=== PATIENT | female | born 1970 | race Caucasian/White ===

== ENCOUNTER 2020-06-08 15:55 | Outpatient (CLI) | payer OTHER, SELFPAY ==
--- NOTE | ~2020-06-08 | MM_ITS ---
EXAMINATION: MM screening nir BI w angélica HISTORY: Screening mammogram TECHNIQUE: Craniocaudal and mediolateral oblique 3-D tomosynthesis images were obtained and synthetic 2-D images were generated. CAD analysis was submitted and interpreted. COMPARISON: No prior mammogram is available for comparison at this institution. BREAST PARENCHYMAL COMPOSITION: There are scattered areas of fibroglandular density. FINDINGS: There is no evidence of suspicious mass, calcification, or architectural distortion to sugg est malignancy in either breast. There has been no suspicious interval change. IMPRESSION: 1. No mammographic evidence of malignancy. 2. Recommend routine screening mammography in one year. BI-RADS Category 1: Negative Reviewed, dictated and finalized at location A.
== END 2020-06-08 15:56 | disposition home or self-care (01) ==
LOC: ANHIMG 15:58
PROVIDERS: PCP Internal Medicine; Visit Provider Internal Medicine
DX: Z12.31 Encounter for screening mammogram for malignant neoplasm of breast (principal)
CPT/HCPCS: 77063; 77067

== ENCOUNTER 2021-09-01 14:44 | Outpatient (CLI) | payer OTHER, SELFPAY ==
--- NOTE | ~2021-09-01 | MM_ITS ---
EXAMINATION: MM screening nir BI w angélica HISTORY: Screening TECHNIQUE: Craniocaudal and mediolateral oblique 3-D tomosynthesis images were obtained and synthetic 2-D images were generated. CAD analysis was submitted and interpreted. COMPARISON: 06/08/2020 BREAST PARENCHYMAL COMPOSITION: Breast composed of scattered areas of fibroglandular density FINDINGS: There are asymmetries in the upper outer quadrant of the left breast. There are no suspicio us masses, calcifications or architectural distortion in the right breast to suggest malignancy. IMPRESSION: 1. Left breast asymmetries, upper outer quadrant, middle third. 2. Additional mammographic views and possible breast ultrasound are recommended. BI-RADS Category 0: Incomplete: Needs additional imaging evaluation. Reviewed, dictated and finalized at location A. [facility] COPPER IMPRESSION: 1. Left breast asymmetries, upper outer quadrant, middle third. 2. Additional mammographic views and possible breast ultrasound are recommended . BI-RADS Category 0: Incomplete: Needs additional imaging evaluation.
== END 2021-09-01 14:45 | disposition home or self-care (01) ==
PROVIDERS: PCP Internal Medicine; Visit Provider Internal Medicine
DX: Z12.31 Encounter for screening mammogram for malignant neoplasm of breast (principal); R92.8 Other abnormal and inconclusive findings on diagnostic imaging of breast
CPT/HCPCS: 77063; 77067

== ENCOUNTER 2021-09-16 13:20 | Outpatient (CLI) | payer OTHER, SELFPAY ==
--- NOTE | ~2021-09-16 | MMUS_ITS ---
EXAMINATION: MM diagnostic nir LT w angélica, US breast LT limited HISTORY: Focal asymmetry left breast on screening mammogram TECHNIQUE: Additional 3-D tomosynthesis images of the left breast were performed and synthetic 2-D im ages were generated. CAD analysis was submitted and interpreted. High resolution limited left breast ultrasound was performed. COMPARISON: 09/01/2019 09/29/2019 FINDINGS: MAMMOGRAPHIC FINDINGS: Focal asymmetry in the middle third of the upper outer quadrant of the breast has an appearance stabl to 2019 comparison with spot compression. No suspicious mass, calcification, or architectural disto rtion are identified. ULTRASOUND: There is no evidence of focal abnormal solid or cystic mass in the vicinity of the mammographic findi ng in question. IMPRESSION: 1. No mammographic or sonographic evidence of malignancy. 2. Recommend routine screening mammography in one year. BI-RADS Category 2: Benign finding(s). Reviewed, dictated and finalized at location A. CT ENTRY MIDWIFE IMPRESSION: 1. No mammographic or sonographic evidence of malignancy. 2. Recommend routine screening mammography in one year. BI-RADS Category 2: Benign finding(s).
== END 2021-09-16 13:21 | disposition home or self-care (01) ==
LOC: ANHIMG 13:22
PROVIDERS: PCP Internal Medicine; Visit Provider Internal Medicine
DX: R92.8 Other abnormal and inconclusive findings on diagnostic imaging of breast (principal)
CPT/HCPCS: 76642; 77061; 77065; G0279

== ENCOUNTER 2022-04-03 17:34 | Outpatient (CLI) | payer OTHER, SELFPAY ==
--- NOTE | ~2022-04-03 | XR_ITS ---
XR chest 2V DATE: 04/03/2022 17:50 INDICATION: Cough, shortness of breath, headache, persisting since Covid infection in mid February TECHNIQUE: PA and lateral views COMPARISON: 06/19/2012 PA and lateral chest FINDINGS: Normal heart size. No hilar or mediastinal enlargement. The lungs are moderately hyperinfla magy but clear of infiltrate or consolidation. No pleural effusion or pulmonary vascular congestion or pneumothorax. IMPRESSION: No active cardiopulmonary disease Reviewed, dictated and finalized at location A.
== END 2022-04-03 17:35 | disposition home or self-care (01) ==
PROVIDERS: PCP Internal Medicine; Visit Provider Internal Medicine
DX: R05.9 Cough, unspecified (principal)
CPT/HCPCS: 71046

== ENCOUNTER 2022-11-28 16:11 | Outpatient (CLI) | payer OTHER, SELFPAY ==
--- NOTE | ~2022-11-28 | MM_ITS ---
EXAMINATION: MM screening nir BI w angélica HISTORY: Screening mammogram TECHNIQUE: Craniocaudal and mediolateral oblique 3-D tomosynthesis images were obtained and synthetic 2-D images were generated. CAD analysis was submitted and interpreted. COMPARISON: 09/16/2021, 09/01/2021, 06/08/2020 BREAST PARENCHYMAL COMPOSITION:There are scattered areas of fibroglandular density. FINDINGS: No suspicious mass, calcification, or architectural distortion are identified in either jolly ast to suggest malignancy. There has been no suspicious interval change. IMPRESSION: No mammographic evidence of malignancy. Recommend routine screening mammography in one year. BI-RADS Category 1: Negative Reviewed, dictated and finalized at location .
== END 2022-11-28 16:12 | disposition home or self-care (01) ==
PROVIDERS: PCP Internal Medicine; Visit Provider Internal Medicine
DX: Z12.31 Encounter for screening mammogram for malignant neoplasm of breast (principal)
CPT/HCPCS: 77063; 77067

== ENCOUNTER 2024-02-27 15:54 | Outpatient (CLI) | payer OTHER, SELFPAY ==
--- NOTE | ~2024-02-27 | MM_ITS ---
EXAMINATION: MM screening nir BI w angélica HISTORY: Screening TECHNIQUE: Craniocaudal and mediolateral oblique 3-D tomosynthesis images were obtained and synthetic 2-D images were generated. CAD analysis was submitted and interpreted. COMPARISON: Comparison to multiple prior studies sequentially, with oldest reviewed study dated 05/21. BREAST PARENCHYMAL COMPOSITION: Not dense: There are scattered areas of fibroglandular density. FINDINGS: There is no evidence of suspicious mass, calcification, or architectural distortion to sugg est malignancy in either breast. There has been no suspicious interval change. IMPRESSION: 1. No mammographic evidence of malignancy. 2. Recommend routine screening mammography in one year. BI-RADS Category 1: Negative Reviewed, dictated and finalized at location B.
== END 2024-02-27 15:55 | disposition home or self-care (01) ==
LOC: ANHIMG 15:56
PROVIDERS: PCP Internal Medicine; Visit Provider Internal Medicine
DX: Z12.31 Encounter for screening mammogram for malignant neoplasm of breast (principal)
CPT/HCPCS: 77063; 77067

== ENCOUNTER 2024-03-27 00:18 | Observation (INO) | payer OTHER, SELFPAY ==
[2024-03-27] VITALS (7 sets, daily range): BP systolic 118–190; BP diastolic 74–110; PULSE 74–100; RESP 15–19; TEMP 35.7–37; O2SAT 95–100; BMI 32.2
--- NOTE | ~2024-03-27 | CT_ITS ---
Non-contrast CT scan of the Abdomen and Pelvis Clinical indication: Right flank pain Technique: 2.5 mm axial scans were obtained through the abdomen and pelvis without intravenous or or al contrast. Dose reduction technique was used on this scan by utilizing automated exposure control a nd iterative reconstruction technique. The dose-length product (DLP) was 715.67 mGy-cm. Findings: Images through the lung bases reveal no abnormalities. There is no evidence of renal or ureteral calculi. The kidneys and the ureters are nondilated. The liver, spleen, pancreas, and adrenals appear normal. Cholecystectomy clips are present. There is no aortic aneurysm. There is no evidence of bowel obstruction. Images through the pelvis were performed. There is no evidence of ascites or lymphadenopathy. Urinary bladder unremarkable. No pelvic mass seen. No ascites. Impression: No significant abnormality seen. Reviewed, dictated and finalized at [facility]. Impression: No significant abnormality seen.
--- NOTE | ~2024-03-27 | MR_ITS ---
EXAMINATION: MR lumbar spine wo/w con DATE: 03/27/2024 16:04 INDICATION: Severe back pain. TECHNIQUE: Magnetic resonance imaging (MRI) of the lumbar spine was performed without and with 18 mL MultiHance intravenous contrast. COMPARISON: CT abdomen and pelvis 03/27/2024 FINDINGS: Bone alignment is normal. There is mild chronic anterior wedging of T12 and L1 vertebral óscar dies. There is a hemangioma in L4 vertebral body. There is mildly decreased disc height at L2-L3 and L4-L5. The distal spinal cord signal intensity is normal. The conus medullaris is at T12-L1. The foll owing disc levels are specifically discussed: L1-L2: The disc does not extend beyond the endplate margin. There is mild bilateral facet joint osteo arthritis. There is no neural foraminal stenosis. There is no central canal stenosis. L2-L3: The disc is bulging. There is moderate bilateral facet joint osteoarthritis. There is mild ritika ateral neural foraminal stenosis. There is mild central canal stenosis. L3-L4: The disc is bulging and has an annular fissure. There is severe bilateral facet joint osteoart hritis. There is mild bilateral neural foraminal stenosis. There is mild central canal stenosis. L4-L5: The disc is bulging and has an annular fissure. There is severe right and moderate left facet joint osteoarthritis. There is mild bilateral neural foraminal stenosis. There is mild central canal stenosis. L5-S1: The disc does not extend beyond the endplate margin. There is severe bilateral facet joint ost eoarthritis. There is mild bilateral neural foraminal stenosis. There is no central canal stenosis. IMPRESSION: 1. Mild lumbar spondylosis. Reviewed, dictated and finalized at location A. IMPRESSION: 1. Mild lumbar spondylosis.
[2024-03-27] MEDS: dexAMETHasone SOD PHOS INJ 10 MG/ML 1 ML VIAL IM (02:10)
[2024-03-27] MEDS: CYCLOBENZAPRINE HCL 10 MG TABLET PO ×2 (02:10→08:57)
[2024-03-27] MEDS: HYDROcodone/acetaminophen (*CRX) 5-325 MG TABLET 1 TAB PO (02:10)
[2024-03-27] MEDS: LIDOCAINE 5% PATCH 1 PATCH TRANSDERM (02:11)
--- NOTE | 2024-03-27 02:36 | PC.NURSE ---
heel warmer applied to patients back .
[2024-03-27] MEDS: HYDROmorphone HCL INJ (*CRX) 1 MG/ML SYR IM (02:50)
--- NOTE | 2024-03-27 02:59 | ED.BACK ---
HPI - Back Pain/Injury General Chief Complaint: Back Pain/Injury Stated Complaint: sciatic pain Time Seen by Provider: 03/27/24 01:53 History of Present Illness HPI Narrative: 53-year-old female presents to the emergency department for right-sided low back pain for the past couple of days. Patient denies injury or trauma. States over the past several hours her pain is significantly worsened which prompted her to come to the ED. she states it is located on the right side of her back and comes in spurts. States it is worse when she moves and better when she sits up straight. She states the pain does not radiate down her leg or into her groin. She denies saddle anesthesia, bowel or bladder incontinence, urinary retention, fever, nausea or vomiting, dysuria or hematuria, history of kidney stones. She denies history of cancer, immunosuppression, IV drug use. Related Data Allergies Allergy/AdvReac Type Severity Reaction Status Date / Time morphine Allergy Chest Pain Verified 03/27/24 02:11 Penicillins Allergy Other Verified 03/27/24 00:21 Review of Systems Review of Systems: All systems reviewed & are unremarkable except as noted in HPI and below Exam Narrative: GENERAL: Appears uncomfortable, Tearful, nontoxic HEAD: Normocephalic, atraumatic. ENT: Nares clear, no rhinorrhea or epistaxis. Mucous membranes moist. NECK: Supple. BACK: no significant midline spinous tenderness, step-offs or deformities. Obvious palpable and visible muscle spasm to the right flank that significantly worsens when patient moves her back. No overlying skin changes. CHEST: Clear to auscultation. No respiratory distress. HEART: Regular rate and rhythm. No murmur heard. Normal peripheral pulses. ABDOMEN: Soft, nontender, nondistended, normal active bowel sounds. EXTREMITIES: Normal range of motion. No edema. SKIN: Warm, dry, no rash. NEURO: No focal deficits. Alert and oriented x3 . BLE strength 5/5. No saddle anesthesia. Sensation intact throughout. Course Vital Signs Vital signs: Vital Signs Temperature 36.9 C 03/27/24 00:24 Pulse Rate 100 03/27/24 00:24 Respiratory Rate 19 03/27/24 00:24 Blood Pressure 190/110 H 03/27/24 00:24 Pulse Oximetry 100 03/27/24 00:24 Temperature 37.0 C 03/27/24 03:39 Pulse Rate 87 03/27/24 03:39 Respiratory Rate 15 03/27/24 03:39 Blood Pressure 131/87 03/27/24 03:39 Pulse Oximetry 98 03/27/24 03:39 MDM - Back Pain/Injury MDM Narrative Medical decision making narrative: 53-year-old female presents to the emergency department for right sided low back pain over the past couple of days, worsening over the past few hours. Triage vital significant for hypertension of 190/110. Patient does appear very uncomfortable on exam and is tearful. she has no significant midline spinous tenderness, step-offs or deformities. She does have an obvious muscle spasm to the right flank that significantly worsens with any movement. There is no overlying skin changes. She is neurovascularly intact. There are no signs of cord compression or cauda equina. Given the patient's pain is very obviously secondary to muscle spasm as visualized on exam, will attempt to treat her symptoms and forego a CT at this time. Again she has no midline spinous tenderness. Patient was given IM Decadron, lidocaine patch and Flexeril without improvement. She was given [place] without improvement. Patient then received IM Dilaudid with minimal improvement but is still having persistent spasms better visible to her right flank. I discussed admission for pain control which patient is amenable to. Pending CBC, BMP and UA at time of sign-out to Dr. George. Lab Data 03/27/24 03:33 03/27/24 03:33 Labs: Lab Results 03/27/24 03/27/24 Range/Units 03:33 04:51 WBC 15.1 H (4.5-10.0) K/mm3 RBC 4.46 (4.2-5.4) M/mm3 Hgb 13.6 (12.0-15.0) g/dL Hct 39.0 (37.0-47.0)
[2024-03-27 03:44] LABS: Basophils Absolute Auto 0.1 K/mm3 (0.0-0.1); Basophils Percent Auto 0.6 % (0.2-1.2); Eosinophils Percent Auto 0.1 % (0-4.4); Hemoglobin 13.6 g/dL (12.0-15.0); Immature Granulocyte Absolute 0.12 K/mm3 (0.00-0.031); Immature Granulocyte Percent A 0.8 % (0-0.5); Lymphocytes Absolute Auto 1.47 K/mm3 (0.9-3.2); Lymphocytes Percent Auto 9.7 % (18.3-44.2); Mean Corpuscular HGB Conc 34.9 g/dl (32-36); Mean Corpuscular Hemoglobin 30.5 pg (26-34); Mean Corpuscular Volume 87.4 fl (80-100); Mean Platelet Volume 9.2 fl (7.4-10.4); Monocytes Absolute Auto 0.7 K/mm3 (0.1-0.6); Monocytes Percent Auto 4.4 % (2.6-8.5); Neutrophils Absolute Auto 12.8 K/mm3 (1.3-6.7); Neutrophils Percent Auto 84.4 % (45.5-73.1); Platelet Count Result 369 k/mm3 (150-375); Red Blood Count 4.46 M/mm3 (4.2-5.4); White Blood Count 15.1 K/mm3 (4.5-10.0)
[2024-03-27] MEDS: diazePAM INJ (*CRX) 10 MG/2 ML SYRINGE 5 MG IV PUSH ×3 (03:45→22:43)
[2024-03-27 03:57] LABS: Anion Gap 15 mmol/L (4-12); Blood Urea Nitrogen 13 mg/dL (7-17); Calcium 9.2 mg/dL (8.4-10.2); Carbon Dioxide 18 mmol/L (22-30); Chloride 103 mmol/L (98-107); Estimated CRCL calculation 92 ml/min; Estimated Glomerular Filt Rate > 60; Glucose 133 mg/dL (65-110); Potassium 3.7 mmol/L (3.4-5.0); Sodium 136 mmol/L (137-145)
[2024-03-27 05:00] LABS: Add Urine Microscopic? YES; Appearance Urine Clear (Clear); Bacteria Urine None Seen /hpf; Bilirubin Urine Negative (Negative); Blood Urine Trace (Negative); Color Urine Yellow (Yellow); Glucose Urine UA Negative (Negative); Ketones Urine Negative (Negative); Leukocyte Esterase Ur Negative LEU/UL (Negative); Nitrate Urine Negative (Negative); Non Pathogenic Casts 0-2; Protein Urine Negative (Negative); RBC Urine 0-2 /hpf (0-2); Specific Grav Ur 1.006 (1.001-1.035); Squamous Epithelial Cell Urine None Seen /hpf (Few); Urobilinogen Urine 0.2 mg/dL (<2.0); WBC Urine 0-5 /hpf (0-3); pH Urine 7.5 (5.0-9.0)
[2024-03-27] MEDS: ACETAMINOPHEN 325 MG TABLET 650 MG PO (07:31)
[2024-03-27] MEDS: HYDROmorphone HCL INJ (*CRX) 1 MG/ML SYR 0.5 MG IV PUSH ×3 (07:32→16:08)
[2024-03-27] MEDS: KETOROLAC 30 MG/ML VIAL (*BKC) IV PUSH ×2 (07:32→21:42)
--- NOTE | 2024-03-27 08:40 | ADMGEN ---
This patient, Britney Pastor, was admitted to Medical Room 249-01. Patient/family oriented to hospital policies and general routines including ID bracelet, bed and alarms, visiting hours, pain management, procedures, bathroom and other care routines, personal items, smoking policy, room service/diet, and visiting hours. Information on how to activate the Rapid Response Team has been discussed. Patient/Family are encouraged to report perceived risks to care and to ask questions if they do not understand what they are told or what they should do.
--- NOTE | 2024-03-27 12:48 | PM.IMHP ---
H&P: HPI History of Present Illness Date/Time: 03/27/24 12:48 Chief Complaint: Low back pain. Narrative: 53-year-old female past medical history hypertension history uncomfortable foreskin back pain. Patient with shortness of patient the significance of 5 images demonstrate having severe onset no back pain described as sharp, worse with movements with intermittent spasms intensity of 10 10 and 6/10 on tez. She denies any recent traumas no loss of bowel or urinary control: No fever no vomiting abdominal pain no dysuria no focal weakness. However noted movement is impacted pain. Your evaluation of the foot was 7.0, heart rate 74, respiratory 17, likely representing epidural blood pressure 129/85. WBC 15.1, glucose. CT abdomen and pelvis no acute findings. Chest x-ray pending. Smokes 1 pack a day, no alcohol abuse marijuana occasionally. Review of Systems Review of Systems: Other systems were reviewed and continued the history above. [facility] Family History Family History (Updated 03/27/24 @ 08:50 by Mari Gayle RN) Father Throat cancer Social History Social History Smoking packs per day: 25 Smoking cigarettes per day: 500.0 Years smoked: 1 Smoking pack-years: 25.00 Smoking status: Current every day smoker Alcohol intake: never Substance use: never Substance use type: does not use Do You Feel Safe in your Home?: Yes Lack of Transportation: No Lack of Food: Never True Current Housing: I Have Housing Concerned About Future Housing: No Difficulty Paying Gas/Electric Bills: No Difficulty Paying for Meds: No Currently Unemployed: No Education: Associate Degree Difficulty w/ Childcare or Family Care: No Spiritual care concerns: No Meds Home Medications and Allergies Home Medications Medication Instructions Recorded Confirmed Type hydrochlorothiazide 25 mg tablet 25 mg PO DAILY 03/27/24 03/27/24 History losartan 50 mg tablet 50 mg PO DAILY 03/27/24 03/27/24 History semaglutide (weight loss) 1 mg/0.5 1 mg subcut WEEKLY 03/27/24 03/27/24 History mL subcutaneous pen injector (Wegovy) Allergies Allergy/AdvReac Type Severity Reaction Status Date / Time morphine Allergy Chest Pain Verified 03/27/24 02:11 Penicillins Allergy Other Verified 03/27/24 00:21 Vital Signs Vital Signs - 24 hr 03/27/24 00:24 03/27/24 03:39 03/27/24 07:38 Temperature 98.4 F 98.6 F Pulse Rate 100 87 83 Respiratory Rate 19 15 18 Blood Pressure 190/110 H 131/87 127/78 Pulse Oximetry 100 98 97 Oxygen Delivery Fraction of Inspired Oxygen 03/27/24 08:44 03/27/24 11:02 03/27/24 10:52 Temperature 97.0 F L Pulse Rate 74 Respiratory Rate 17 Blood Pressure 129/85 Pulse Oximetry 99 98 Oxygen Delivery Room Air Room Air Fraction of Inspired Oxygen 21 Exam Narrative: General: alert and comfortable Eyes: EOMI, PERRLA ENNT External ears normal, Neck is supple, no masses, Respiratory systems: Clear to auscultation Cardiovascular S1, S2, normal rhythm, no murmur, rub, or gallop; no thrill or palpable murmurs on palpation. Gastrointestinal: soft, non-tender, and non-distended abdomen with no masses; BS present Skin: no rash, lesions, ulcerations, subcutaneous nodules or induration Musculoskeletal: Lumbar spine tenderness Neurologic: Alert and oriented x3, non focal Mental Status Exam: normal affect H&P: Results Labs Labs: Short CBC 03/27/24 Range/Units 03:33 WBC 15.1 H (4.5-10.0) K/mm3 Hgb 13.6 (12.0-15.0) g/dL Hct 39.0 (37.0-47.0) % Plt Count 369 (150-375) k/mm3 BMP 03/27/24 03:33 Sodium 136 L Potassium 3.7 Chloride 103 Carbon Dioxide 18 L BUN 13 Creatinine 0.70 Glucose 133 H Calcium 9.2 Urine 03/27/24 Range/Units 04:51 Urine Color Yellow (Yellow) Urine Appearance Clear (Clear) Urine pH 7.5 (5.0-9.0) Ur
[2024-03-27] MEDS: TIZANIDINE HCL 2 MG TABLET PO (20:23)
[2024-03-28] MEDS: HYDROmorphone HCL INJ (*CRX) 1 MG/ML SYR 0.5 MG IV PUSH ×2 (02:29→12:44)
[2024-03-28] MEDS: CYCLOBENZAPRINE HCL 10 MG TABLET PO ×2 (02:29→11:02)
[2024-03-28 04:18] VITALS: BP 120/73; PULSE 69; RESP 18; TEMP 36.5; O2SAT 98
[2024-03-28] MEDS: diazePAM INJ (*CRX) 10 MG/2 ML SYRINGE 5 MG IV PUSH (07:23)
[2024-03-28] MEDS: KETOROLAC 30 MG/ML VIAL (*BKC) IV PUSH (07:28)
[2024-03-28] MEDS: ENOXAPARIN 40 MG/0.4 ML SYRINGE SUB-Q (07:29)
[2024-03-28 08:00] VITALS: O2SAT 98
[2024-03-28] MEDS: TIZANIDINE HCL 2 MG TABLET PO (08:29)
[2024-03-28 09:53] LABS: Basophils Absolute Auto 0.1 K/mm3 (0.0-0.1); Basophils Percent Auto 0.3 % (0.2-1.2); Eosinophils Absolute Auto 0.1 K/mm3 (0-0.3); Eosinophils Percent Auto 0.5 % (0-4.4); Hematocrit 36.4 % (37.0-47.0); Hemoglobin 12.1 g/dL (12.0-15.0); Immature Granulocyte Absolute 0.13 K/mm3 (0.00-0.031); Immature Granulocyte Percent A 0.8 % (0-0.5); Lymphocytes Absolute Auto 3.68 K/mm3 (0.9-3.2); Lymphocytes Percent Auto 22.1 % (18.3-44.2); Mean Corpuscular HGB Conc 33.2 g/dl (32-36); Mean Corpuscular Hemoglobin 30.7 pg (26-34); Mean Corpuscular Volume 92.4 fl (80-100); Mean Platelet Volume 9.1 fl (7.4-10.4); Monocytes Absolute Auto 1.1 K/mm3 (0.1-0.6); Monocytes Percent Auto 6.6 % (2.6-8.5); Neutrophils Absolute Auto 11.6 K/mm3 (1.3-6.7); Neutrophils Percent Auto 69.7 % (45.5-73.1); Platelet Count Result 321 k/mm3 (150-375); Red Blood Count 3.94 M/mm3 (4.2-5.4); White Blood Count 16.7 K/mm3 (4.5-10.0)
[2024-03-28 10:19] LABS: Alanine Aminotransferase 18 U/L (6-35); Albumin Level 3.7 g/dL (3.5-5.1); Alkaline Phosphatase 75 U/L (38-126); Anion Gap 8 mmol/L (4-12); Aspartate Amino Transferase 25 U/L (14-36); Bilirubin,Total 0.2 mg/dL (0.2-1.3); Blood Urea Nitrogen 14 mg/dL (7-17); Calcium 8.9 mg/dL (8.4-10.2); Carbon Dioxide 28 mmol/L (22-30); Chloride 101 mmol/L (98-107); Estimated CRCL calculation 91 ml/min; Estimated Glomerular Filt Rate > 60; Glucose 119 mg/dL (65-110); Potassium 3.5 mmol/L (3.4-5.0); Sodium 137 mmol/L (137-145)
[2024-03-28 13:17] VITALS: BP 133/84; PULSE 67; RESP 16; TEMP 36.4; O2SAT 100
--- NOTE | 2024-03-28 13:19 | PM.DS ---
DS: Admitting Diagnosis Discharge Date 03/28/24 Admitting Diagnosis back pain and spasm DS: Summary Hospital Course Hospital Course: 53-year-old female past medical history hypertension history uncomfortable foreskin back pain. Patient with shortness of patient the significance of 5 images demonstrate having severe onset no back pain described as sharp, worse with movements with intermittent spasms intensity of 10 10 and 6/10 on tez. She denies any recent traumas no loss of bowel or urinary control: No fever no vomiting abdominal pain no dysuria no focal weakness. However noted movement is impacted pain. Your evaluation of the foot was 7.0, heart rate 74, respiratory 17, likely representing epidural blood pressure 129/85. WBC 15.1, glucose. CT abdomen and pelvis no acute findings. Chest x-ray pending. Smokes 1 pack a day, no alcohol abuse marijuana occasionally. MRi lumbar spine was unremarkable Patient noted pain improved with Diazepam and Diclofenac Discussed with her about discharging her on muscle relaxant and diclofenac however she noted that Diazepam worked better for her. I discussed with that i am hesitant about diazepam because of dependence, she stated she will be mindful of that and will only use it when needed for pain. Concluded that i will give diazepam x 10 tablets, no muscle relaxants and then NSAIDs and Lidocaine patch. topical management Assessment and plan (1) Back muscle spasm: Code(s): M62.830 - Muscle spasm of back Status: Acute Plan Severe back pain and spasm Rule out nerve impingement, cord compression, fractures, and diskitis. P.r.n. pain control, p.r.n. tizanidine PT/OT MRI lumbar spine unremarkable discharged on Diazepam 5mg tid PRN x 10 tablets, Diclofenac x 7 days and lidocaine patch F/u with PCP in 3-5 days Hypertension Titrate home meds with clinical course Tobacco use Patient counseled about smoking cessation F/u with PCP in 3-5 days. Time Spent with Patient Time attestation: Total time spent providing and/or coordinating discharge services: DS: Data Data Completed and Pending Labs on day of discharge: Labs from last 24 hours 03/28/24 09:27 WBC 16.7 H RBC 3.94 L Hgb 12.1 Hct 36.4 L MCV 92.4 D MCH 30.7 MCHC 33.2 RDW 13.0 Plt Count 321 MPV 9.1 Immature Gran % (Auto) 0.8 H Neut % (Auto) 69.7 Lymph % (Auto) 22.1 Hayes % (Auto) 6.6 Eos % (Auto) 0.5 Baso % (Auto) 0.3 Lymph # (Auto) 3.68 H Hayes # (Auto) 1.1 H Eos # (Auto) 0.1 Baso # (Auto) 0.1 Abs Immat Gran (auto) 0.13 H Absolute Neuts (auto) 11.6 H Absolute Nucleated RBC 0.000 Nucleated RBC % 0.0 Sodium 137 Potassium 3.5 Chloride 101 Carbon Dioxide 28 Anion Gap 8 BUN 14 Creatinine 0.70 Estim Creat Clear Calc 91 Estimated GFR > 60 Glucose 119 H Calcium 8.9 Total Bilirubin 0.2 AST 25 ALT 18 Alkaline Phosphatase 75 Total Protein 6.0 L Albumin 3.7 Discharge Plan Discharge Attending physician on discharge: Grace Starr Discharging Clinician: Grace Starr Patient Disposition: Home Health Service Activity: as tolerated Diet: as tolerated Patient Instructions: Antibiotic Form, How to Stop Smoking (GEN) Stand Alone Forms: General Discharge Information Follow-up/Referrals: ,Mike Barbosa MD [Primary Care Provider] - (F/u with PCP in 3-5 days ) Discharge Medications: New diazepam 5 mg tablet 5 mg PO TID PRN (Reason: muscle spasm) Qty: 10 0RF diclofenac sodium 100 mg tablet extended release 24 hr 100 mg PO DAILY Qty: 7 0RF Continued losartan 50 mg tablet 50 mg PO DAILY hydrochlorothiazide 25 mg tablet 25 mg PO DAILY Wegovy 1 mg/0.5 mL pen injector 1 mg SUBCUT WEEKLY Rx Instructions: EVERY SUNDAY Date of admission: 03/27/24 07:00 Primary Care Provider: ,Mike Barbosa Admitting Provider: Zari Gee Attending physician on admission: Christine Gee
[2024-03-28] MEDS: LIDOCAINE 5% PATCH 2 PATCH TRANSDERM (13:37)
--- NOTE | 2024-03-29 18:11 | PC.NURSE ---
Pt son called today after patient discharged to home. Pt c/o severe back spasms, using heating pad, took diazepam 4 hrs ago. Pt is now shaking uncontrollable and in severe pain after having taken prescribed discharge meds. I instructed him to find a thermometer and call me back. I told him that he may likely need to bring her to the ER.
== END 2024-03-28 14:15 | disposition home or self-care (01) ==
LOC: ANHED 07:01 → ANH2MED 09:26
PROVIDERS: Physician Assistant; Admitting Provider Internal Medicine; Emergency Provider Emergency Medicine; PCP Internal Medicine; Visit Provider Internal Medicine
DX: M62.830 Muscle spasm of back (principal); F17.210 Nicotine dependence, cigarettes, uncomplicated; Z79.85 Long-term (current) use of injectable non-insulin antidiabetic drugs; F12.90 Cannabis use, unspecified, uncomplicated
CPT/HCPCS: 36415; 72158; 74176; 80048; 80053; 81001; 85025; 96372; 96374; 96375; 96376; 97161; 97165; 99285; A9270; A9577; G0378; J1100; J1170; J1650; J1885; J3360